=== PATIENT | female | born 1970 | race Caucasian/White ===

== ENCOUNTER 2017-11-18 22:55 | Emergency (ER) | payer OTHER ==
[2017-11-18 23:01] VITALS: BMI 30.4
--- NOTE | 2017-11-18 23:14 | PDOC ---
History of Present Illness - General History Source: Patient, Old Records Exam Limitations: No Limitations - History of Present Illness Initial Comments: 11/18/17 23:37 The patient is a 47 year old male with a past medical history of pre diabetes, hypertension, and hypercholesterolemia who presents to the emergency department with mid epigastric pain for 2 weeks. She reports that her pain is burning in sensation, constant, and intermittently worsening. She reports that her pain was the worst today. She reports associated distention and bloatedness. Her last bowel movement was today. She denies vomiting, diarrhea, and history of abdominal surgery. She endorses recent travel to the [place] 2 weeks ago. <Gaudencio Britton - Last Filed: 11/18/17 23:37> <Razia Peralta - Last Filed: 11/19/17 04:38> - General History Source: Patient Exam Limitations: No Limitations <Roxana Rodrigues - Last Filed: 11/22/17 10:02> - General Chief Complaint: Pain, Acute Stated Complaint: ABDOMINAL PAIN Time Seen by Provider: 11/18/17 23:14 Past History <Gaudencio Britton - Last Filed: 11/18/17 23:37> <Razia Peralta - Last Filed: 11/19/17 04:38> - Suicide/Smoking/Psychosocial Hx Smoking History: Never smoked Have you smoked in the past 12 months: No Information on smoking cessation initiated: No Hx Alcohol Use: No Drug/Substance Use Hx: No <Roxana Rodrigues - Last Filed: 11/22/17 10:02> - Past Medical History Allergies/Adverse Reactions: Allergies Allergy/AdvReac Type Severity Reaction Status Date / Time No Known Allergies Allergy Verified 11/18/17 23:01 Home Medications: Ambulatory Orders Clonazepam 1 mg PO ASDIR 11/18/17 Lisinopril/Hydrochlorothiazide [Lisinopril-Hctz 10-12.5 mg Tab] 1 each PO DAILY 11/18/17 Metformin HCl 500 mg PO DAILY 11/18/17 Omeprazole 40 mg PO DAILY 11/18/17 Sucralfate [Carafate -] 1 gm PO DAILY 11/18/17 Venlafaxine HCl ER [Effexor Xr -] 150 mg PO DAILY 11/18/17 Bupropion HCl [Bupropion Xl] 300 mg PO DAILY 11/19/17 Review of Systems - Review of Systems Able to Perform ROS?: Yes Comments:: 11/18/17 23:37 GENERAL/CONSTITUTIONAL: No: fever, chills, weakness, loss of appetite. HEAD, EYES, EARS, NOSE AND THROAT: No: change in vision, ear pain, discharge, sore throat, throat swelling. CARDIOVASCULAR: No: chest pain, lightheadedness, palpitations, syncope RESPIRATORY: No: cough, shortness of breath, wheezing, hemoptysis, stridor. GASTROINTESTINAL: (+) Mid epigastric pain. Distention. Bloated No: nausea, vomiting, diarrhea, rectal bleeding, constipation. GENITOURINARY: No: dysuria, hematuria, frequency, urgency, flank pain. MUSCULOSKELETAL: No: back pain, neck pain, joint pain, muscle swelling or pain SKIN: No: lesions, pallor, rash or easy bruising. NEUROLOGIC: No: headache, vertigo, paresthesias, weakness ENDOCRINE: No: unexplained weight gain or loss HEMATOLOGIC/LYMPHATIC: No: anemia, easy bleeding, swelling nodes <Gaudencio Britton - Last Filed: 11/18/17 23:37> *Physical Exam - Vital Signs Last Vital Signs Temp Pulse Resp BP Pulse Ox 98.2 F 79 16 135/73 100 11/18/17 22:57 11/18/17 22:57 11/18/17 22:57 11/18/17 22:57 11/18/17 22:57 - Physical Exam Comments: 11/18/17 23:38 GENERAL: The patient is in no acute distress. HEAD: Normal with no signs of trauma. EYES: PERRLA, EOMI, sclera anicteric, conjunctiva clear. ENT: Ears normal, nares patent, oropharynx clear without exudates. Moist mucous membranes. NECK: Normal range of motion, supple without lymphadenopathy, JVD, or masses. LUNGS: Breath sounds equal, clear to auscultation bilaterally. No wheezes, and no crackles. HEART:Regular rate and rhythm, normal S1 and S2 without murmur, rub or gallop. ABDOMEN: (+) Periumbilical tenderness on palpation. Soft, normoactive bowel sounds. No guarding, no rebound. EXTREMITIES: Normal range of motion, no edema. No clubbing or cyanosis. No erythema, or tenderness. NEUROLOGICAL: Cranial nerves II through XII grossly intact. Normal speech. No focal neurological deficits. MUSCULOSKELETAL: Back nontender to palpation, no CVA tenderness SKIN: Warm, Dry, normal turgor, no rashes or lesions noted. <Gaudencio Britton - Last Filed: 11/18/17 23:37> - Vital Signs Last Vital Signs Temp Pulse Resp BP Pulse Ox 98.2 F 79 16 135/73 100 11/18/17 22:57 11/18/17 22:57 11/18/17 22:57 11/18/17 22:57 11/18/17 22:57 <Razia Peralta - Last Filed: 11/19/17 04:38> - Vital Signs Last Vital Signs Temp Pulse Resp BP Pulse Ox 98.2 F 79 16 135/73 100 11/18/17 22:57 11/18/17 22:57 11/18/17 22:57 11/18/17 22:57 11/18/17 22:57 <Roxana Rodrigues - Last Filed: 11/22/17 10:02> ED Treatment Course - LABORATORY CBC & Chemistry Diagram: 11/19/17 00:01 11/19/17 00:01 - ADDITIONAL ORDERS Additional order review: Laboratory Results 11/19/17 11/19/17 11/19/17 00:49 00:01 00:01 Sodium 141 Potassium 4.2 Chloride 106 Carbon Dioxide 25 Anion Gap 10 BUN 11 Creatinine 1.1 H Creat Clearance w eGFR 52.79 Random Glucose 87 Calcium 8.5 Total Bilirubin 0.5 AST 25 ALT 25 Alkaline Phosphatase 75 Creatine Kinase 236 H Creatine Kinase Index 1.7 CK-MB (CK-2) 4.106 H Troponin I < 0.02 Total Protein 7.2 Albumin 3.9 Total Amylase 76 Lipase 239 Serum , Qual Negative Urine Color Colorless Urine Appearance Clear Urine pH 7.0 Ur Specific Welch 1.002 Urine Protein Negative Urine Glucose (UA) Negative Urine Ketones Negative Urine Blood Negative Urine Nitrite Negative Urine Bilirubin Negative Urine Urobilinogen Negative Ur Leukocyte Esterase Trace Urine WBC (Auto) 9 Urine RBC (Auto) <1 Ur Epithelial Cells Rare Urine Bacteria Rare 11/19/17 00:01 RBC 3.63 MCV 92.0 MCHC 34.7 RDW 13.4 MPV 7.8 Neutrophils % 55.2 Lymphocytes % 35.5 Monocytes % 6.6 Eosinophils % 2.1 Basophils % 0.6 - Medications Given in the ED: ED Medications Discontinued Medications Generic Name Dose Route Start Last Admin Trade Name Cinthia PRN Reason Stop Dose Admin Acetaminophen 1,000 mg 11/18/17 23:28 11/19/17 00:11 Ofirmev Injection - IVPB 11/18/17 23:29 1,000 mg ONCE ONE Administration Hyoscyamine Sulfate 0.125 mg 11/18/17 23:30 11/19/17 00:11 Levsin Odt - PO 11/18/17 23:31 0.125 mg ONCE ONE Administration <Razia Peralta - Last Filed: 11/19/17 04:38> - LABORATORY CBC & Chemistry Diagram: 11/19/17 00:01 11/19/17 00:01 <Roxana Rodrigues - Last Filed: 11/22/17 10:02> Medical Decision Making - Medical Decision Making 11/19/17 04:38 Patient Name: SIVAN FLOWERS THIS IS A PRELIMINARY REPORT FROM [facility] DATE OF SERVICE: 2017-11-19 03:33:20 IMAGES: 442 EXAM: CT ABDOMEN \T\ PELVIS CT WITH CONTR HISTORY: Abdominal pain COMPARISON: None. FINDINGS: Abdomen Liver: Normal Spleen: Normal Pancreas: Normal CONFIDENTIALITY NOTICE: This information is intended only for the use of the recipient(s) named above. If you are not the intended recipient, or a person responsible for delivering it to the intended recipient, you are hereby notified that any disclosure, copying, distribution or use of any of the information contained in or attached to this transmission is STRICTLY PROHIBITED. If you have received this transmission in error, please immediately notify [facility] and destroy the original transmission and its attachments without saving them in any manner [address] [facility] [address] [place] [address] Phone: [phone] ([phone]) Fax: Email: [email or web address] Web: [email or web address] Patient Information: : 1970 Name: SHINE FINNEGAN Sex: F Study Description: CT ABDOMEN AND PELVIS Modality: CT Location: [facility] Referring Physician: VERO RANGEL Stomach: Normal Small bowel: Normal Large bowel: Normal Appendix: Normal Adrenals:Normal Kidneys: Normal Vascular: Normal Lymphatic: Normal Peritoneal: No free peritoneal air or fluid Pelvis: Uterus: normal Rectum: Normal Bladder: Normal The inferior thorax: Normal General: Skeletal: Normal Abdominal wall: Normal IMPRESSION: No acute findings THIS DOCUMENT HAS BEEN ELECTRONICALLY SIGNED Pt will be discharged <Razia Peralta - Last Filed: 11/19/17 04:38> - Medical Decision Making 11/19/17 00:45 Ms Flowers is a 47 year old F w/ h/o pre diabetes, HTN, HLD who presents to the ER with a complaint of epigastric/periumbilical pain x 2 weeks. Pain is burning, constant, no radiation, she has not tried any thing to make her pain better No vomiting No diarrhea Pt had soup today earlier in the day, can not tolerate po States the last time she ate like normal was 15 days (+) bloated Last bowel movement was today Most recently [place] 2 [place] ago She reports that her pain is burning in sensation, constant, and intermittently worsening. On examination: Doreen umbilical tenderness to palpation No guarding or rebound No RUQ oe epigastric tenderness to palpation DD: Pancreatitis, gastritis, ulcer, sbo, unlikely acute appendicitis given chronicity of symptoms ? ruptured appy Will do Labs CT IVF Pepcid/hyosciamine Laboratory Tests 11/19/17 11/19/17 11/19/17 00:01 00:01 00:01 WBC 6.1 Hgb 11.6 Hct 33.4 Plt Count 282 Sodium 141 Potassium 4.2 Chloride 106 Carbon Dioxide 25 Anion Gap 10 BUN 11 Creatinine 1.1 H Random Glucose 87 Creatine Kinase 236 H Troponin I < 0.02 Total Amylase 76 Lipase 239 Serum , Qual Negative 11/19/17 01:[address] Pending UA Signed out to Dr Peralta <Roxana Rodrigues - Last Filed: 11/22/17 10:02> *DC/Admit/Observation/Transfer - Attestations Scribe Attestion: 11/18/17 23:38 Documentation prepared by Gaudencio Britton, acting as medical chemist for Roxana Rodrigues MD. <Gaudencio Britton - Last Filed: 11/18/17 23:37> - Discharge Dispostion Decision to Admit order: No <Razia Peralta - Last Filed: 11/19/17 04:38> <Roxana Rodrigues - Last Filed: 11/22/17 10:02> Diagnosis at time of Disposition: Abdominal pain, unspecified site - Discharge Dispostion Disposition: HOME Condition at time of disposition: Stable - Referrals Referrals: ON STAFF,NOT [Primary Care Provider] - - Patient Instructions Printed Discharge Instructions: DI for Acute Abdomen
[2017-11-18] MEDS ORDERED: SODIUM CHLORIDE 1,000 ML IV SCH (23:15)
[2017-11-18] MEDS ORDERED: ACETAMINOPHEN 1000 MG/100 ML VIAL (NON FORMULARY) IVPB ONE (23:28)
[2017-11-18] MEDS ORDERED: HYOSCYAMINE SULFATE 0.125 MG *ODT PO ONE (23:30)
[2017-11-19] MEDS ORDERED: ACETAMINOPHEN INJECTION 100 ML IVPB ONE (00:03)
[2017-11-19 00:06] LABS: BASO % 0.6 % (0-2.0); EOS % 2.1 % (0-4.5); HEMATOCRIT 33.4 % (32.4-45.2); HEMOGLOBIN 11.6 GM/dL (10.7-15.3); LYMPH % 35.5 % (8-40); MCH 31.9 pg (25.7-33.7); MCHC 34.7 g/dl (32.0-36.0); MEAN PLT VOLUME 7.8 fl (7.5-11.1); MONO % 6.6 % (3.8-10.2); NEUT % 55.2 % (42.8-82.8); PLATELET COUNT 282 K/MM3 (134-434); RBC 3.63 M/mm3 (3.60-5.2); RDW 13.4 % (11.6-15.6); WHITE BLOOD COUNT 6.1 K/mm3 (4.0-10.0)
[2017-11-19 00:36] LABS: ALBUMIN 3.9 g/dl (3.4-5.0); AMYLASE 76 U/L (25-115); ANION GAP 10 (8-16); BILIRUBIN,TOTAL 0.5 mg/dL (0.2-1.0); BLOOD UREA NITROGEN 11 mg/dL (7-18); CALCIUM 8.5 mg/dL (8.5-10.1); CHLORIDE 106 mmol/L (98-107); CO2 25 mmol/L (21-32); CREATININE 1.1 mg/dL (0.55-1.02); GLUCOSE,RANDOM 87 mg/dL (74-106); SGPT/ALT 25 U/L (12-78); SODIUM 141 mmol/L (136-145); TOT PROT 7.2 g/dl (6.4-8.2)
[2017-11-19 00:39] LABS: ALK PHOS 75 U/L (45-117); LIPASE 239 U/L (73-393)
[2017-11-19 00:40] LABS: POTASSIUM 4.2 mmol/L (3.5-5.1); SGOT/AST 25 U/L (15-37)
[2017-11-19 01:01] LABS: URINE APPEARANCE CLEAR; URINE BILIRUBIN NEGATIVE (<2.0 mg/dL); URINE COLOR COLORLESS; URINE GLUCOSE (UA) NEGATIVE (NEGATIVE); URINE KETONE NEGATIVE (NEGATIVE); URINE LEUK ESTERASE TRACE (NEGATIVE); URINE NITRITE NEGATIVE (NEGATIVE); URINE PROTEIN NEGATIVE (NEGATIVE); URINE UROBILINOGEN NEGATIVE mg/dL (0.2-1.0)
[2017-11-19 01:07] LABS: EPI CELLS RARE /HPF (FEW); URINE BACTERIA RARE /hpf (NONE SEEN)
[2017-11-19 04:53] VITALS: BP 135/78; PULSE 89; TEMP 98.5
--- NOTE | 2017-11-19 08:20 | EKG ---
Test Reason : Blood Pressure : / mmHG Vent. Rate : 066 BPM Atrial Rate : 066 BPM P-R Int : 166 ms QRS Dur : 100 ms QT Int : 430 ms P-R-T Axes : 046 036 033 degrees QTc Int : 450 ms NORMAL SINUS RHYTHM NORMAL ECG NO PREVIOUS ECGS AVAILABLE Confirmed by DENYS DONALD MD ([id number]) on 11/19/2017 8:20:03 AM Referred By: Confirmed By:DENYS DONALD MD
--- NOTE | 2017-11-21 07:43 | PDOC ---
Patient Follow-up (Call Back) - Post ED Follow - Up Condition at time of discharge: Stable Disposition at time of original discharge: HOME Reason for Call Back: Abnwl. Microbiology (Patient's urine culture, preliminary report shows non-lactose fermenting GNB. Patient currently on no antibiotics. Will wait for final report prior to treating.)
--- NOTE | 2017-11-22 10:30 | PDOC ---
Patient Follow-up (Call Back) - Post ED Follow - Up Condition at time of discharge: Stable Disposition at time of original discharge: HOME Reason for Call Back: Abnwl. Microbiology (+ecoli, sen to bactrim, keflex and macrobid Pt not on abx L/m to call back)
--- NOTE | 2017-11-23 08:01 | PDOC ---
Patient Follow-up (Call Back) - Post ED Follow - Up Condition at time of discharge: Stable Disposition at time of original discharge: HOME Reason for Call Back: Abnwl. Microbiology (Pt. with (+) urine culture. Spoke to pt on phone and made aware of results. Tiffany sent to her pharmacy. Pt. states she will pick it up today and start taking it.)
== END 2017-11-19 04:54 | disposition home or self-care (01) ==
LOC: JER 22:55
DX: R10.13 Epigastric pain (principal); R10.33 Periumbilical pain; I10 Essential (primary) hypertension; E11.9 Type 2 diabetes mellitus without complications; Z79.84 Long term (current) use of oral hypoglycemic drugs
CPT/HCPCS: 36415; 74177-TC; 80053; 81003; 81015; 82150; 82550; 82553; 83690; 84484; 84703; 85025; 87086; 87186; 93005; 93010; 99283-25; J0131; J7030